=== PATIENT | male | born 1980 | race Caucasian/White ===

== ENCOUNTER 2016-10-23 14:01 | Emergency (ER) | payer OTHER ==
[~2016-10-23] VITALS: Ht 182.9 cm; Wt 75.0 kg
[2016-10-23] MEDS ORDERED: DERMABOND TOPICAL SKIN ADHESIVE TOP ONE (15:30)
[2016-10-23] MEDS ORDERED: AMOXICILLIN 500 MG CAP PO ONE (15:30)
[2016-10-23] MEDS ORDERED: AMOX500C PO (15:37)
[2016-10-23 15:42] VITALS: BP 158/87
== END 2016-10-23 15:43 | disposition home or self-care (01) ==
LOC: M ED 14:01
DX: S01.21XA Laceration without foreign body of nose, initial encounter (principal); S01.511A Laceration without foreign body of lip, initial encounter; S02.5XXA Fracture of tooth (traumatic), initial encounter for closed fracture; W45.8XXA Other foreign body or object entering through skin, initial encounter; Y92.89 Other specified places as the place of occurrence of the external cause; Y93.89 Activity, other specified; Y99.0 Civilian activity done for income or pay; F17.200 Nicotine dependence, unspecified, uncomplicated